=== PATIENT | female | born 1950 | race Caucasian/White ===

== ENCOUNTER → 2016-12-17 | Outpatient (CLI) | payer MEDICARE, BC ==
[~2016-12-17] MED LIST: ALBUTEROL0.83 MG/ML IH; ALTACE 10MG TAB10 MG PO; ALTACE1.25 MG PO; CANA100T PO; CANA300T; COREG CR40 MG PO; COREG12.5 MG PO; COREG3.125 MG PO; EFFEXOR 50M50 MG/TAB; EFFEXOR-XR150 MG PO; FARXIGA10 PO; GABAPENTIN600 MG PO; GLUCOPHAGE1000 MG PO; HCTZ 25MG TAB25 MG PO; HCTZ 25MG25 MG PO; LEVAQUIN 5500 MG/TA1 PO; LIPITOR 40MG TA40 MG PO; LIPITOR 80MG80 MG PO; LORTAB 5/500 501 TAB PO; METFORMIN500 MG PO; MICRONASE1.25 MG PO; NEURONTIN600 MG/TAB PO; NEURONTIN800 MG/TAB PO; NORCO 325 MG-51 TAB PO; PREDNISONE20 MG PO; PROAIR HFA0.09 MG/AC IH; PROTONIX 40MG T40 MG PO; PROZAC20 MG PO; REMERON 15M15 MG/TA1 PO; RT SPIRIVA18 MCG IH; ST. JOSEPH81 M1 PO; TRADJENTA5 MG PO; TRICOR145 MG PO; TRICOR48 MG PO; VESICARE 5MG5 MG PO; VESICARE10 MG PO
== END ==
LOC: MC.RAD 14:42
DX: Z12.31 Encounter for screening mammogram for malignant neoplasm of breast (principal)

== ENCOUNTER → 2019-01-05 | Outpatient (CLI) | payer MEDICARE, BC ==
[~2019-01-05] MED LIST changes: +SYNTHROID 0.0.025 MG PO
== END ==
LOC: MC.RAD 13:48
DX: Z12.31 Encounter for screening mammogram for malignant neoplasm of breast (principal)

== ENCOUNTER → 2020-01-10 | Outpatient (CLI) | payer MEDICARE, BC | LOC: MC.RAD 14:04 | DX: Z12.31 Encounter for screening mammogram for malignant neoplasm of breast (principal) ==

== ENCOUNTER → 2021-05-30 | Outpatient (CLI) | payer MEDICARE, BC | LOC: COL.RAD 13:25 | DX: F17.200 Nicotine dependence, unspecified, uncomplicated (principal) ==

== ENCOUNTER 2022-09-08 08:28 | Day surgery (SDC) | payer MEDICARE, BC ==
[~2022-09-08] VITALS: Ht 167.6 cm; Wt 67.5 kg
[2022-09-08] VITALS (709 sets, daily range): BP systolic 133–158; BP diastolic 65–107; PULSE 48–60; TEMP 98.1–98.6; O2SAT 74–96
[~2022-09-08 08:28] MED LIST changes: +AMOXICILLIN 8751 TAB PO; +ARICEPT10 MG PO; +BACTROBAN 22GM22 GM TP; +CYMBALTA 60MG60 MG PO; +DOXYCYCLINE 10100 MG PO; +ELIQUIS 5MG PO; +LEVEMIR100 U/ML SQ; +LORAINT PO; +MSIR10 MG/5 ML PO; +NOVOLOG 100U100 U/M1 SQ; +PACERONE400 MG PO; +ROXANOL 20MG20 MG/ML PO; +SEROQUEL50 MG PO; +XANAX 0.5MG0.5 MG PO
[2022-09-08 09:32] LABS: INR 1.1 (0.8-3.0); PROTHROMBIN TIME 12.7 SECONDS (9.7-12.8)
[2022-09-08 09:37] LABS: ALBUMIN 3.5 gm/dL (3.4-4.8); BILIRUBIN,TOTAL 0.4 mg/dL (0.2-1.2); CREATININE, serum 0.7 mg/dL (0.57-1.11); POTASSIUM 4.2 mmol/L (3.5-4.5); TOTAL PROTEIN 6.4 gm/dL (6.2-8.1)
[2022-09-08] MEDS ORDERED: XANAX 1MG1 MG PO (09:53)
[2022-09-08] MEDS ORDERED: ASPIRIN E.C. 8181 MG PO (09:54)
[2022-09-08] MEDS ORDERED: JANUMXR100-1000 PO (09:56)
[2022-09-08] MEDS ORDERED: SEROQUEL 1100 MG/TAB PO (09:57)
--- NOTE | 2022-09-08 19:23 | NUR ---
RECIEVED REPORT FROM DAY SHIFT NURSE. PT IS RESTING IN BED AND VITALS ARE STABLE AT THIS TIME.
[2022-09-09] VITALS (473 sets, daily range): BP systolic 135–166; BP diastolic 58–71; PULSE 52–58; TEMP 97.9–98.5; O2SAT 84–98
[2022-09-09 06:33] LABS: CALCIUM 9.1 mg/dL (8.4-10.2); CREATININE, serum 0.66 mg/dL (0.57-1.11); MAGNESIUM 1.7 mg/dL (1.6-2.6); POTASSIUM 4.4 mmol/L (3.5-4.5)
--- NOTE | 2022-09-09 06:47 | NUR ---
PT HAS HAD AN UNEVENTFUL NIGHT. PT WAS IN [place] THROUGHOUT THE SHIFT. WHEN PT WAS ASLEEP PT'S SPO2 WOULD STAY AT 85%. PUT 1L NC ON FOR WHEN PT IS ASLEEP AND PT STAYED AT AND ABOVE 88%. PT IS ALERT AND ORIENTED TO PLACE AND SELF. WAS NOT FULLY ORIENTED TO TIME. PT IS RESTING IN BED WITH CALL LIGHT WITHIN REACH. WILL GIVE REPORT TO DAY SHIFT NURSE.
--- NOTE | 2022-09-09 08:24 | NUR ---
SW met with patient to complete intake. Patient reports that she lives at home alone in an apartment in [place]. She is fully independent with her ADL's and IADL's. She does not utilize any home DME to assist with ambulation or home oxygen. Per patient, PCP is and she utilizes [facility] [place] for prescriptions. Patient does have a DPOA-HC established listing her two daughters Antonietta ([phone]) and Fifi ([phone]) and can be located in her EMR.
--- NOTE | 2022-09-09 08:51 | NUR ---
RECEIVED REPORT FROM AQUILINO HO RN. MORNING ASSESSMENT COMPLETED. PATIENT ABLE TO ANSWER ALL ORIENTATION QUESTIONS CORRECTLY, BUT HAS A HISTORY OF BASELINE DEMENTIA. PATIENT IS ABLE TO WALK WITH A STEADY GAIT WHILE USING WALKER. PATIENT DENIES ANY PAIN, CP, OR SOA. PATIENT HAS NO CONCERNS AT THIS TIME. WILL CONTINUE TO MONITOR.
[2022-09-09] MEDS ORDERED: BETAPACE 80MG80 MG PO (11:03)
--- NOTE | 2022-09-09 11:55 | NUR ---
EDUCATION AND DISCHARGE INFORMATION PROVIDED TO PATIENT AND DAUGHTER. BOTH STATED UNDERSTANDING OF THE INFORMATION AND FOLLOW UP APPOINTMENTS. IV'S DISCONTINUED. PATIENT TRANSPORTED VIA WHEELCHAIR TO DAUGHTER'S VEHICLE. DISCHARGED AT 1152.
== END 2022-09-09 11:52 | disposition home or self-care (01) ==
LOC: SDCO 08:28 → ICU 08:43 → SDCO 09-09 11:52
DX: Z51.81 Encounter for therapeutic drug level monitoring (principal); I48.0 Paroxysmal atrial fibrillation; E83.42 Hypomagnesemia
CPT/HCPCS: OP; C9482; J3475; J7050